=== PATIENT | male | born 1960 | race Caucasian/White ===

== ENCOUNTER 2016-06-15 10:07 | Emergency (ER) | payer MEDICAID ==
[~2016-06-15] VITALS: Wt 75.0 kg
[~2016-06-15 10:07] MED LIST: BACTDS PO; HYDR-3720 PO
[2016-06-15] MEDS ORDERED: ACETAMINOPHEN 500 MG TAB PO STA (11:25)
[2016-06-15] MEDS ORDERED: LIDOCAINE 1% (MDV) 20 ML INJ SC ONE (11:30)
[2016-06-15] MEDS ORDERED: IBUP-1542 PO (12:28)
--- NOTE | 2016-06-15 12:29 | ERD ---
ER Documentation Chief Complaint Date/Time DATE: 06/15/16 TIME: 12:28 Chief Complaint left index finger laceration from a metal piece of car. bleeding controlled HPI This 55-year-old male presents with left index finger laceration after getting into with a hammer in his finger slipped. Denies any restricted range of motion or weakness or pain in the bones or sensation of fracture. His tetanus is up-to-date. ROS All systems reviewed and are negative except as per history of present illness. Medications Home Meds Active Scripts Ibuprofen* (Motrin*) 600 Mg Tab, 600 MG PO Q6, #15 TAB Prov:JAMIE STEELE MD 06/15/16 Hydrocodone Bit-Acetaminophen* ([place]*) 7.5-325 Tablet, 1 TAB PO Q4H Y for PAIN , #20 TAB Prov:HALLIE CANAS DO 06/27/15 Sulfamethoxazole-Trimethoprim* (Bactrim* DS) 800-160 Mg Tab, 1 TAB PO BID for 21 Days, TAB Prov:HALLIE CANAS DO 06/27/15 Allergies Allergies: Coded Allergies: No Known Allergy (Unverified , 06/15/16) PMhx/Soc Medical and Surgical Hx: pt denies Medical Hx History of Surgery: Yes (back surgery) Anesthesia Reaction: No Hx Neurological Disorder: No Hx Respiratory Disorders: No Hx Cardiac Disorders: No Hx Psychiatric Problems: No Hx Miscellaneous Medical Probl: No Hx Alcohol Use: No Hx Substance Use: No Hx Tobacco Use: No Smoking Status: Never smoker Physical Exam Vitals Vital Signs Date Time Temp Pulse Resp B/P Pulse Ox O2 Delivery O2 Flow Rate FiO2 06/15/16 10:09 98.6 78 20 146/82 98 Physical Exam Const: [] Alert, not ill-appearing. Head: Atraumatic Eyes: Normal Conjunctiva ENT: Normal External Ears, Nose and Mouth. Neck: Full range of motion..~ No meningismus. Resp: Clear to auscultation bilaterally Cardio: Regular rate and rhythm, no murmurs Abd: Soft, non tender, non distended. Normal bowel sounds Skin: No petechiae or rashes. There is approximately 3 cm laceration across the volar aspect of the proximal left index finger. There is no restricted range of motion weakness or tenderness or neurologic deficit and no deformities. There is no bony tenderness. Back: No midline or flank tenderness Ext: No cyanosis, or edema Neur: Awake and alert Psych: Normal Mood and Affect Results 24 hrs Current Medications Medications (Trade) Dose Ordered Sig/Alistair Route PRN Reason Start Time Stop Time Status Last Admin Dose Admin Acetaminophen (Tylenol Tab) 500 mg ONCE STAT PO 06/15/16 11:25 06/15/16 11:27 DC 06/15/16 11:47 Lidocaine (Xylocaine 1% (Mdv) 20 ml) 20 ml ONCE ONCE SC 06/15/16 11:30 06/15/16 11:35 DC Procedures/MDM Procedure note-the left index finger was irrigated copiously with normal saline. 2 3 cc of lidocaine was used for local infiltration. 6 4-0 nylon sutures were used to approximate the wound the wound was dressed. Patient tolerated procedure well. Patient was discharged home instructions for wound check in 2 days and suture removal in 10 days. Signs and symptoms do not suggest tendon or neurologic deficit, fracture, foreign body, infection. Departure Diagnosis: Primary Impression: Laceration Condition: Stable Patient Instructions: Laceration, Hand Additional Instructions: 2 days wound check and 10 days suture removal. Recheck sooner for fevers, redness, new symptoms JAMIE STEELE MD Jun 15, 2016 12:29
== END 2016-06-15 12:45 | disposition home or self-care (01) ==
LOC: FTE 10:07
DX: S61.211A Laceration without foreign body of left index finger without damage to nail, initial encounter (principal); W27.0XXA Contact with workbench tool, initial encounter; Y92.9 Unspecified place or not applicable
CPT/HCPCS: 12002; Z7502; Z7610

== ENCOUNTER 2016-06-24 09:07 | Emergency (ER) | payer MEDICAID ==
[~2016-06-24] VITALS: Wt 72.6 kg
[~2016-06-24 09:07] MED LIST changes: +IBUP-1542 PO
--- NOTE | 2016-06-24 11:04 | ERD ---
ER Documentation Chief Complaint Date/Time DATE: 06/24/16 TIME: 11:02 Chief Complaint LEFT INDEX FINGER SUTURE REMOVAL. HPI This is a 55-year-old male presenting to the emergency department to remove the sutures of a laceration that occurred on his left volar index finger on June from a hammer. Patient denies any fevers, complications, or neuro deficits. He states that he does have a normal pain. ROS All systems reviewed and are negative except as per history of present illness. Medications Home Meds Active Scripts Ibuprofen* (Motrin*) 600 Mg Tab, 600 MG PO Q6, #15 TAB Prov:JAMIE STEELE MD 06/15/16 Hydrocodone Bit-Acetaminophen* ([place]*) 7.5-325 Tablet, 1 TAB PO Q4H Y for PAIN , #20 TAB Prov:HALLIE CANAS DO 06/27/15 Sulfamethoxazole-Trimethoprim* (Bactrim* DS) 800-160 Mg Tab, 1 TAB PO BID for 21 Days, TAB Prov:NILDA CANASSTISABELS AMoustapha DO 06/27/15 Allergies Allergies: Coded Allergies: No Known Allergy (Unverified , 06/15/16) PMhx/Soc History of Surgery: Yes (back surgery) Anesthesia Reaction: No Hx Neurological Disorder: No Hx Respiratory Disorders: No Hx Cardiac Disorders: No Hx Psychiatric Problems: No Hx Miscellaneous Medical Probl: No Hx Alcohol Use: No Hx Substance Use: No Hx Tobacco Use: No Physical Exam Vitals Vital Signs Date Time Temp Pulse Resp B/P Pulse Ox O2 Delivery O2 Flow Rate FiO2 06/24/16 09:09 98.8 82 21 151/71 98 Physical Exam General: WD/WN, in no apparent distress, non-toxic appearing HENT: NC/AT Eyes: Conjunctiva normal Neck: Supple Pulm: Clear to auscultation, normal labored breathing; no wheezing/rales/ rhonchi heard CV: Good capillary refill GI: Non-distended, no guarding Back: No masses Ext: No clubbing, cyanosis, or edema Neuro: Moves on all fours Skin: 3 cm repaired laceration on the volar aspect of his left index finger with sutures intact, no dehiscence or induration or erythema No ulcerations or rashes noted. Psych: Normal mood Procedures/MDM This is a 55-year-old male presenting to the emergency department for a suture removal of his repaired laceration on his left index finger from a hammer on June 15 and . On examination patient had a 3 cm repaired laceration with 6 sutures intact there was no evidence of dehiscence, cellulitis, flexor synovitis , no neuro deficits. 6 sutures were removed without any complications. I have applied benzoin tincture and Steri-Strips for some additional support. I discussed her to the ER for any worsening signs or symptoms. Patient is neurovascular intact and stable for discharge. He understands and agrees with this plan Departure Diagnosis: Primary Impression: Encounter for removal of sutures Condition: Stable Patient Instructions: Suture Removal, No Complication Referrals: DOCTOR,NOT ON STAFF (PCP) Additional Instructions: Return to this facility if you are not improving as expected. LUCY DAVE PA-C Jun 24, 2016 11:04
== END 2016-06-24 11:14 | disposition home or self-care (01) ==
LOC: FTE 09:07
DX: Z48.02 Encounter for removal of sutures (principal)

== ENCOUNTER 2018-04-01 18:15 | Emergency (ER) | END 2018-04-01 20:52 | disposition home or self-care (01) ==